=== PATIENT | female | born 1995 | race Caucasian/White ===

== ENCOUNTER 2017-04-30 18:25 | Emergency (ER) | payer OTHER ==
[2017-04-30 19:12] VITALS: BP 104/57
[2017-04-30] MEDS ORDERED: predniSONE TAB* 20 MG PO ONE (19:35)
--- NOTE | 2017-04-30 19:39 | UC ---
Throat Pain/Nasal Mickey HPI - HPI Summary HPI Summary: 21 yo female wtih sore throat x 2 weeks just finished keflex this AM no f/c now bilateral otalgia (mild) - History of Current Complaint Chief Complaint: UCGeneralIllness Stated Complaint: SORE THROAT Time Seen by Provider: 04/30/17 19:22 Hx Obtained From: Patient Hx Last Menstrual Period: 02/2016 Onset/Duration: Gradual Onset, Lasting Weeks - 2 Severity: Moderate Pain Intensity: 4 Pain Scale Used: 0-10 Numeric Cough: None Associated Signs & Symptoms: Negative: Dysphagia, FB Sensation, Drooling, Wheezing, Hoarseness, Sinus Discomfort, Nasal Discharge, Fever, Vomiting, Rash - Epiglottits Risk Factors Epiglottis Risk Factors: Negative - Allergies/Home Medications Allergies/Adverse Reactions: Allergies Allergy/AdvReac Type Severity Reaction Status Date / Time Penicillins Allergy Hives Verified 04/30/17 19:01 Pertussis Vaccines Allergy Agitation Verified 04/30/17 19:01 Home Medications: Home Medications Albuterol HFA INHALER* [Ventolin HFA Inhaler*] 2 puff INH Q4H PRN 04/30/17 [ History Confirmed 04/30/17] Cephalexin CAP* [Keflex CAP*] 500 mg PO QID 04/30/17 [History Confirmed 04/30/17 ] Ibuprofen TAB* [Advil TAB*] 400 mg PO Q8H PRN 04/30/17 [History Confirmed ] PMH/Surg Hx/FS Hx/Imm Hx Previously Healthy: Yes - Surgical History Surgical History: Yes Surgery Procedure, Year, and Place: Gall bladder 07/2016 - Family History Known Family History: Positive: Hypertension - Social History Alcohol Use: None Substance Use Type: None Smoking Status (MU): Never Smoked Tobacco Review of Systems Constitutional: Fatigue Skin: Negative Eyes: Negative ENT: Sore Throat, Ear Ache Respiratory: Negative Cardiovascular: Negative Gastrointestinal: Negative Genitourinary: Negative Motor: Negative Neurovascular: Negative Musculoskeletal: Negative Neurological: Negative Psychological: Negative All Other Systems Reviewed And Are Negative: Yes Physical Exam Triage Information Reviewed: Yes Appearance: Well-Appearing, No Pain Distress, Well-Nourished Vital Signs: Initial Vital Signs Temp 99.8 F 04/30/17 18:53 Pulse 83 04/30/17 18:53 Resp 16 04/30/17 18:53 BP 104/57 04/30/17 18:53 Pulse Ox 99 04/30/17 18:53 Vital Signs Reviewed: Yes Eyes: Positive: Conjunctiva Clear ENT: Positive: Pharyngeal erythema, Nasal drainage, TM bulging. Negative: Hearing grossly normal, Nasal congestion, Tonsillar exudate, Trismus, Muffled/ hoarse voice Neck: Positive: Supple, Nontender, Enlarged Nodes @ - anterior cervical lymph nodes Respiratory: Positive: Lungs clear, Normal breath sounds, No respiratory distress, No accessory muscle use Cardiovascular: Positive: RRR, No Murmur, Pulses Normal Abdomen Description: Positive: Nontender, No Organomegaly, Soft Musculoskeletal: Positive: ROM Intact, No Edema Neurological Exam: Normal Neurological: Positive: Alert Psychological Exam: Normal Skin Exam: Normal Throat Pain/Nasal Course/Dx - Differential Dx/Diagnosis Provider Diagnoses: pharyngitis. bilateral serous otitis media Discharge - Discharge Plan Condition: Stable Disposition: HOME Prescriptions: Prednisone 60 mg PO DAILY #6 tab Patient Education Materials: Pharyngitis (ED), Serous Otitis Media (ED) Referrals: Non Staff,Doctor [Primary Care Provider] - 4 Days Additional Instructions: strep test negative recheck for new or worsening symptom mono is a consideration
== END 2017-04-30 20:04 | disposition home or self-care (01) ==
LOC: UCCORT 18:25
DX: J02.9 Acute pharyngitis, unspecified (principal); H65.93 Unspecified nonsuppurative otitis media, bilateral; Z88.0 Allergy status to penicillin; Z88.7 Allergy status to serum and vaccine; Z90.49 Acquired absence of other specified parts of digestive tract
CPT/HCPCS: 87651; 99202; G0463; J7512